=== PATIENT | female | born 1995 | race Caucasian/White ===

== ENCOUNTER 2019-01-03 02:32 | Inpatient (IN) | payer MEDICAID ==
[~2019-01-03] VITALS: Ht 160 cm; Wt 65.3 kg
[2019-01-03] MEDS ORDERED: LACTATED RINGERS 1,000 ML IV SCH ×2 (03:00→03:26)
[2019-01-03] MEDS ORDERED: DEXT 5%/LACTATED RINGERS 1,000 ML IV SCH (03:26)
[2019-01-03] MEDS ORDERED: DEXT 5%/LR + PITOCIN 20UNITS/L 1,000 ML IV SCH ×2 (03:26→04:03)
[2019-01-03] MEDS ORDERED: CARBOPROST TROMETHAMINE 250 MCG/ML AMPUL IM PRN (03:30)
[2019-01-03] MEDS ORDERED: METHYLERGONOVINE MALEATE 0.2 MG/ML IM PRN (03:30)
[2019-01-03] MEDS ORDERED: LIDOCAINE HCL 1% 20ML VIAL (Pyxis) INJ INFIL SCH (03:30)
[2019-01-03 03:55] LABS: BASOPHILS % 0.2 % (0.0-2.0); EOSINOPHILS % 0.6 % (0.0-5.0); HEMATOCRIT. 37.2 % (36.0-48.0); HEMOGLOBIN. 12.3 g/dL (12.0-16.0); LYMPHOCYTES % 13.5 % (20.0-50.0); MEAN CORPUSCULAR HEMOGLOBIN 29.4 pg (28.0-32.0); MEAN PLATELET VOLUME 11.3 fl (7.4-10.4); MONOCYTES % 5.8 % (2.0-8.0); NEUTROPHILS % 79.9 % (40.0-76.0); PLATELET 239 x1000/uL (130-400); RED BLOOD CELL COUNT 4.17 mill/uL (4.2-5.4); RED CELL DISTRIBUTION WIDTH 12.9 % (11.6-14.6)
[2019-01-03 04:05] LABS: PARTIAL THROMBOPLASTIN TIME 28.2 sec (23.4-31.0)
[2019-01-03] MEDS ORDERED: HEMORRHOIDAL SUPP PR PRN (04:15)
[2019-01-03] MEDS ORDERED: GLYCERIN/WITCH HAZEL LEAF MEDICATED PAD TOP PRN (04:15)
[2019-01-03] MEDS ORDERED: BENZOCAINE/LANOLIN/ALOE VERA SPRAY TOP PRN (04:15)
[2019-01-03] MEDS ORDERED: BISACODYL 10MG SUPP PR PRN (04:15)
[2019-01-03] MEDS ORDERED: DIPHENHYDRAMINE 25MG CAPSULE PO PRN (04:15)
[2019-01-03] MEDS ORDERED: ACETAMINOPHEN WITH CODEINE 300/30MG TABLET PO PRN ×2 (04:15)
[2019-01-03 04:46] LABS: HEPATITIS B SURFACE ANTIGEN NEGATIVE
[2019-01-03 05:45] VITALS: BP 110/70
[2019-01-03 06:15] VITALS: BP 121/65
[2019-01-03 06:44] LABS: CLARITY URINE TURBID (CLEAR); COLOR URINE YELLOW (YELLOW); KETONES URINE 3+ (NEGATIVE); LEUKOCYTE ESTERASE URINE NEGATIVE (NEGATIVE); NITRITE URINE NEGATIVE (NEGATIVE); OCCULT BLOOD URINE NEGATIVE (NEGATIVE); PH URINE 7.5 (4.5-8.0); PROTEIN URINE NEGATIVE (NEGATIVE); SPECIFIC GRAVITY URINE 1.018 (1.005-1.030)
[2019-01-03 07:26] LABS: *AMPHETAMINES SCREEN URINE NEGATIVE (NEGATIVE); *BARBITURATES SCREEN URINE NEGATIVE (NEGATIVE); *BENZODIAZEPINES SCREEN URINE NEGATIVE (NEGATIVE); *COCAINE SCREEN URINE NEGATIVE (NEGATIVE)
[2019-01-03 07:29] LABS: CANNABINOID URINE SCREEN NEGATIVE (NEGATIVE); OPIATES URINE SCREEN NEGATIVE (NEGATIVE); PHENCYCLIDINE URINE SCREEN NEGATIVE (NEGATIVE)
[2019-01-03 07:59] LABS: METHADONE URINE SCREEN NEGATIVE (NEGATIVE)
[2019-01-03 09:00] VITALS: BP 116/65
[2019-01-03] MEDS: SIMETHICONE 80MG TABLET CHEW PO SCH ×4 (10:03→20:50)
[2019-01-03] MEDS: IBUPROFEN 400MG TABLET PO PRN (10:03)
[2019-01-03] MEDS: PRENATAL VIT/FE FUMARATE/FA TABLET PO SCH (10:03)
[2019-01-03 17:00] VITALS: BP 96/62
[2019-01-03 19:15] VITALS: BP 95/52
[2019-01-03] MEDS: DOCUSATE SODIUM 100MG CAPSULE PO SCH (20:49)
[2019-01-03 23:17] VITALS: BP 96/46
[2019-01-04 07:03] LABS: BASOPHILS % 0.6 % (0.0-2.0); EOSINOPHILS % 3.7 % (0.0-5.0); HEMATOCRIT. 35.2 % (36.0-48.0); HEMOGLOBIN. 11.6 g/dL (12.0-16.0); LYMPHOCYTES % 20.5 % (20.0-50.0); MEAN CORPUSCULAR HEMOGLOBIN 29.3 pg (28.0-32.0); MEAN CORPUSCULAR VOLUME 89.1 fL (81.0-99.0); MEAN PLATELET VOLUME 10.5 fl (7.4-10.4); MONOCYTES % 6.9 % (2.0-8.0); NEUTROPHILS % 68.3 % (40.0-76.0); PLATELET 254 x1000/uL (130-400); RED BLOOD CELL COUNT 3.95 mill/uL (4.2-5.4); RED CELL DISTRIBUTION WIDTH 13.1 % (11.6-14.6)
[2019-01-04 08:40] VITALS: BP 98/56
[2019-01-04] MEDS: FERROUS SULFATE 325MG TABLET PO SCH ×3 (09:44→17:30)
[2019-01-04] MEDS: PRENATAL VIT/FE FUMARATE/FA TABLET PO SCH (09:44)
[2019-01-04] MEDS: SIMETHICONE 80MG TABLET CHEW PO SCH ×4 (09:45→22:02)
[2019-01-04] MEDS: IBUPROFEN 400MG TABLET PO PRN (14:21)
[2019-01-04 19:25] VITALS: BP 103/57
[2019-01-04] MEDS: DOCUSATE SODIUM 100MG CAPSULE PO SCH (22:02)
[2019-01-04 23:30] VITALS: BP 92/52
[2019-01-05 07:32] VITALS: BP 102/67
[2019-01-05] MEDS: PRENATAL VIT/FE FUMARATE/FA TABLET PO SCH (08:53)
[2019-01-05] MEDS: FERROUS SULFATE 325MG TABLET PO SCH (08:53)
[2019-01-05] MEDS: SIMETHICONE 80MG TABLET CHEW PO SCH (08:53)
== END 2019-01-06 00:40 | disposition home or self-care (01) | DRG 560 ==
LOC: OBSVTOIN 02:32 → 8 EST LDRP 02:32 → 8EST 08:21
PROVIDERS: ADMIT Obstetrics & Gynecology; ATTEND Obstetrics & Gynecology
PROC: 10E0XZZ Delivery of Products of Conception, External Approach (ICD-10-PCS; principal; 2019-01-03)
DX: O42.912 Preterm premature rupture of membranes, unspecified as to length of time between rupture and onset of labor, second trimester (principal); Z37.0 Single live birth; Z3A.26 26 weeks gestation of pregnancy
CPT/HCPCS: 36415; 76815; 80305; 86592; 86703; 86762; 86850; 86900; 87340; 88307; 99281; J2590; J7120; J7121